=== PATIENT | male | born 1960 | race Caucasian/White ===

== ENCOUNTER → 2018-09-02 | Day surgery (SDC) | payer BC ==
[~2018-09-02] MED LIST: Lactated Ringers 1,000 ML IV SCH; Propofol 200 MG/20 ML SDV IV ONE
--- NOTE | 2018-09-05 11:02 | OR ---
DATE OF OPERATION: 09/02/2018 PREOPERATIVE DIAGNOSIS: SCREENING COLONOSCOPY. POSTOPERATIVE DIAGNOSIS: SCREENING COLONOSCOPY. SURGEON: Mack Ureña MD PROCEDURE: FULL-LENGTH COLONOSCOPY. ANESTHESIA: General anesthesia, COMPUTER SERVICE TECHNICIAN. COMPLICATIONS: None. SPECIMEN: None. FINDINGS: Normal full-length colonoscopy. RECOMMENDATIONS: Followup colonoscopy every 10 years. INDICATIONS: The patient was in for routine physical. He has never had a prior screening colonoscopy. He was sent for such. DESCRIPTION OF PROCEDURE: The patient was prepped and draped, placed in a left lateral decubitus position. A lubricated Olympus colonoscope was inserted and easily advanced to the cecum. Direct visualization of the ileocecal valve and appendiceal orifice was accomplished. The bowel prep was adequate. Upon withdrawal of the scope throughout the entire length of the colon, I could find no signs of any polyps, mass, ulceration, bleeding sites. No vascular abnormalities or signs of colitis. There were no significant diverticula. The rectal vault was benign. Retroflexion of the scope in the rectum showed no anal lesions. Air was suctioned. Scope removed without complication. ARPAN/VAHE /[id number]
== END ==
LOC: CC.SDS 11:27
PROVIDERS: ATTEND Family Medicine
DX: Z12.11 Encounter for screening for malignant neoplasm of colon (principal)
CPT/HCPCS: 45378; J2704; J7120